=== PATIENT | female | born 1975 | race Caucasian/White ===

== ENCOUNTER 2017-09-06 13:16 | Emergency (ER) | payer SELFPAY ==
[~2017-09-06] VITALS: Ht 167.6 cm; Wt 68.0 kg
[~2017-09-06 13:16] MED LIST: ACET325T9 PO
[2017-09-06 13:30] VITALS: BP 127/75
--- NOTE | 2017-09-06 14:22 | RAD ---
Indication: Fall with left hip pain. Time of exam 1412 hours. Femoral acetabular alignment is normal. The joint space is well-maintained. The femoral head and neck are intact. No fractures are seen. Impression: No acute bony abnormality is detected.
--- NOTE | 2017-09-06 14:22 | RAD ---
Indication: Fall and left knee pain. Time of exam 1411 hours. 3 views of the left knee demonstrate normal alignment. The joint spaces are well-maintained. The articular surfaces are smooth. No fracture, dislocation or effusion is seen. Impression: No acute bony abnormality is detected.
[2017-09-06] MEDS ORDERED: ACET-704 PO (14:54)
--- NOTE | 2017-09-06 14:55 | PHYS DOC ---
Past Medical History Past Medical History: No Pertinent History Past Surgical History: Appendectomy, Cholecystectomy, Hysterectomy, Tonsillectomy Alcohol Use: None Drug Use: Marijuana Adult General Chief Complaint Chief Complaint: KNEE INJURY [facility] HPI Patient is a 41 year old female presents to the emergency department stating that she fell down one step and injured her left knee and left hip. She states that she did this approximately 3 days ago. Patient states that she has increased pain in the knee area increased pain in the hip area with ambulation. Patient states that the knee pain is on the lateral part of the knee and the anterior just above the kneecap. Patient states that she has no numbness or tingling down to the lower extremities. She has not taken anything for pain and discomfort. Patient states that she feels a popping sensation in her hip area. Review of Systems Review of Systems Constitutional: Denies fever or chills [] Eyes: Denies change in visual acuity, redness, or eye pain [] HENT: Denies nasal congestion or sore throat [] Respiratory: Denies cough or shortness of breath [] Cardiovascular: No additional information not addressed in HPI [] GI: Denies abdominal pain, nausea, vomiting, bloody stools or diarrhea [] : Denies dysuria or hematuria [] Musculoskeletal: Denies back pain. Complaint of left hip and knee pain Integument: Denies rash or skin lesions [] Neurologic: Denies headache, focal weakness or sensory changes [] Endocrine: Denies polyuria or polydipsia [] All other systems were reviewed and found to be within normal limits, except as documented in this note. Allergies Allergies Allergies Coded Allergies Type Severity Reaction Last Updated Verified fentanyl Allergy Severe Unknown 01/31/14 No Penicillins Allergy Intermediate 09/06/17 Yes amoxicillin Adverse Reaction Intermediate Hives 06/26/14 No morphine Adverse Reaction Intermediate Nausea and Vomiting 01/31/14 Yes Physical Exam Physical Exam Constitutional: Well developed, well nourished, no acute distress, non-toxic appearance. [] HENT: Normocephalic, atraumatic, bilateral external ears normal, oropharynx moist, no oral exudates, nose normal. [] Eyes: PERRLA, EOMI, conjunctiva normal, no discharge. [] Neck: Normal range of motion, no tenderness, supple, no stridor. [] Cardiovascular:Heart rate regular rhythm Lungs & Thorax: No respiratory distress noted Skin: Warm, dry, no erythema, no rash. [] Extremities: No tenderness, no cyanosis, no clubbing, ROM intact, no edema. Tenderness noted to the left lateral knee, anterior knee area just above the patella. Negative lachmans. Positive vargus stress test Neurologic: Alert and oriented X 3, normal motor function, normal sensory function, no focal deficits noted. [] Psychologic: Affect normal, judgement normal, mood normal. [] Current Patient Data Vital Signs Vital Signs Date Time Temp Pulse Resp B/P (MAP) Pulse Ox O2 Delivery O2 Flow Rate FiO2 09/06/17 13:30 97.8 96 16 98 Room Air 97.8 EKG EKG [] Radiology/Procedures Radiology/Procedures [] Course & Med Decision Making Course & Med Decision Making Pertinent Labs and Imaging studies reviewed. (See chart for details) X-rays were negative for any bony abnormalities with her left hip, left knee. Patient was placed in a knee immobilizer with recommendations for ice packs on 20 minutes off 20 minutes several times a day elevation as much as possible. Patient was provided with Tylenol 3 for severe pain and discomfort as she has difficulty taking nonsteroidal anti-inflammatories. Patient was provided with orthopedic name and number to follow up within the next 5-7 days. Patient was provided with signs and symptoms to return back to the emergency department. All questions and concerns been answered at the patients bedside. Patient will be discharged home in stable condition signs and symptoms to return back to the emergency department has been provided. Patient was also instructed to Tylenol 3 may cause drowsiness do not take any be alert and oriented. She was also instructed that this medication will cause constipation to make sure to eat a high-fiber diet such as for some vegetables and drink plenty of fluids. [] Dragon Disclaimer Dragon Disclaimer This electronic medical record was generated, in whole or in part, using a voice recognition dictation system. Departure Departure Impression: Primary Impression: Left knee pain Disposition: 01 HOME, SELF-CARE Condition: STABLE Referrals: RASHEED BUCKLEY MD (PCP) Patient Instructions: Knee Pain, [id number] Additional Instructions: Activity as tolerated Ice packs on 20 minutes and off 20 minutes several times a day Elevation as much as possible Wear the knee immobilizer whenever you are up ambulating Tylenol #3 will cause drowsiness do not take if you need to be alert and oriented. This medication may cause constipation. Drink plenty of water, high fiber diet (eat a lot of fruits and vegetables) Followup with orthopedic in 5-7 days Return to emergency department as needed for signs and symptoms that become worse. Scripts Acetaminophen With Codeine (TYLENOL WITH CODEINE #3 TABLET) 1 Each Tablet 1 TAB PO PRN Q6HRS Y for PAIN, #15 TAB Prov: CHARMAINE KAUFMAN APRN 09/06/17 CHARMAINE KAUFMAN APRN Sep 06, 2017 14:54
== END 2017-09-06 15:01 | disposition home or self-care (01) ==
LOC: ER 13:16
DX: S89.92XA Unspecified injury of left lower leg, initial encounter (principal); S79.912A Unspecified injury of left hip, initial encounter; F12.10 Cannabis abuse, uncomplicated; Z90.49 Acquired absence of other specified parts of digestive tract; Z90.710 Acquired absence of both cervix and uterus; Z88.0 Allergy status to penicillin; Z88.4 Allergy status to anesthetic agent; Z88.1 Allergy status to other antibiotic agents; Z88.5 Allergy status to narcotic agent; W10.9XXA Fall (on) (from) unspecified stairs and steps, initial encounter; Y93.89 Activity, other specified; Y99.8 Other external cause status; Y92.89 Other specified places as the place of occurrence of the external cause
CPT/HCPCS: 29505; 73502; 73564; 99284-25

== ENCOUNTER 2017-09-28 10:11 | Emergency (ER) | payer SELFPAY | END 2017-09-28 10:54 | disposition home or self-care (01) | LOC: ER 10:11 | DX: J20.9 Acute bronchitis, unspecified (principal); F12.10 Cannabis abuse, uncomplicated; Z88.0 Allergy status to penicillin; Z88.4 Allergy status to anesthetic agent; Z88.5 Allergy status to narcotic agent; Z88.1 Allergy status to other antibiotic agents; Z90.49 Acquired absence of other specified parts of digestive tract; Z90.710 Acquired absence of both cervix and uterus | CPT/HCPCS: 99283 ==

== ENCOUNTER 2017-10-31 20:33 | Emergency (ER) | payer BC ==
[2017-10-31] MEDS ORDERED: HYDROcodone/APAP 5/325MG 1 TAB TABLET PO ×2 (21:15)
[2017-10-31] MEDS: NAPROXEN 500 MG TABLET PO ×2 (21:51)
[2017-10-31] MEDS: diazePAM 5 MG TABLET PO ×2 (21:51)
== END 2017-10-31 22:10 | disposition home or self-care (01) ==
LOC: ER 20:33
DX: M54.5 Low back pain (principal); G89.29 Other chronic pain; Z88.0 Allergy status to penicillin; Z88.5 Allergy status to narcotic agent; Z88.4 Allergy status to anesthetic agent
CPT/HCPCS: 72100; 99284

== ENCOUNTER 2020-05-30 13:21 | Emergency (ER) | payer MEDICAID ==
[~2020-05-30] VITALS: Ht 165.1 cm; Wt 68.1 kg
[~2020-05-30 13:21] MED LIST changes: +ACET-704 PO; +ALBU2.5V8 INH; +AZIT250T6 PO; +DIAZ5TAB PO; +DICL50TA4 PO; +METH4TAB2 PO; +PRED20TA PO
--- NOTE | 2020-05-30 15:13 | RAD ---
ANKLE LEFT 3V, FOOT LEFT 3V History: Reason: pain and swelling, fell down stairs / Spl. Instructions: / History: Technique: 3 views left ankle and 3 views left foot Comparison: None. Findings: Ankle: Symmetric ankle mortise. No fracture. Foot: Acute fifth proximal phalanx base intra-articular fracture nondisplaced. There is adjacent soft tissue swelling. No additional fracture. Normal alignment of the foot. Impression: 1. Acute left fifth proximal phalanx base and articular fracture with adjacent soft tissue swelling. Electronically signed by: Neftali Riggs DO (05/30/2020 3:10 PM) [id number]
[2020-05-30] MEDS ORDERED: HYDROcodone/APAP 5/325MG 1 TAB TABLET PO ONE (15:30)
--- NOTE | 2020-05-30 15:46 | RAD ---
Study: CR HAND RIGHT 3V Indication: Fall. Hand injury. Comparison: None. Findings: No definite fracture seen throughout the hand or wrist or involving the distal radius/ulna. Tiny ossific fragment at the thumb IP joint, not definitively acute. No advanced arthrosis. Osseous mineralization is within normal limits. Impression: No definite fracture seen throughout the right hand. Small foci of mineralization at the thumb IP and little finger DIP joints (see brock images) are favored more likely chronic though recommend correlation for pinpoint tenderness. Electronically signed by: EVIN FONG MD (05/30/2020 3:43 PM) [id number]
--- NOTE | 2020-05-30 16:04 | PHYS DOC ---
Past Medical History Past Medical History: Bronchitis Past Surgical History: Appendectomy, Cholecystectomy, Hysterectomy, Tonsillectomy Smoking Status: Former Smoker Alcohol Use: None Drug Use: None Social History Narrative: DAILY MARIJUANA USE General Adult EDM: Chief Complaint: FOOT INJURY PAIN HPI: HPI: Patient is a 44 year old female who presented to ER today for evaluation of left foot pain, right hand pain. Patient says she was walking last night she tripped over her dog, twisted her left foot and landed on her right hand. Patient denies any head or neck injury, complaint of right hand pain, left foot pain. Patient denies any back pain. Review of Systems: Review of Systems: Constitutional: Denies fever or chills. [] Eyes: Denies change in visual acuity. [] HENT: Denies nasal congestion or sore throat. [] Respiratory: Denies cough or shortness of breath. [] Cardiovascular: Denies chest pain or edema. [] GI: Denies abdominal pain, nausea, vomiting, bloody stools or diarrhea. [] : Denies dysuria. [] Musculoskeletal: Denies any back pain, positive for right hand pain, positive left foot pain. Integument: Denies rash. [] Neurologic: Denies headache, focal weakness or sensory changes. [] Endocrine: Denies polyuria or polydipsia. [] Lymphatic: Denies swollen glands. [] Psychiatric: Denies depression or anxiety. [] Heart Score: Risk Factors: Risk Factors: DM, Current or recent (<one month) smoker, HTN, HLP, family history of CAD, obesity. Risk Scores: Score 0 - 3: 2.5% MACE over next 6 weeks - Discharge Home Score 4 - 6: 20.3% MACE over next 6 weeks - Admit for Clinical Observation Score 7 - 10: 72.7% MACE over next 6 weeks - Early Invasive Strategies Current Medications: Current Medications Medications (Trade) Dose Ordered Sig/Beni Start Time Stop Time Status Last Admin Dose Admin Acetaminophen/ Hydrocodone Bitart (Lortab 5/325) 1 tab 1X ONCE 05/30/20 15:30 05/30/20 15:40 DC 05/30/20 15:46 1 TAB Allergies: Allergies: Allergies Coded Allergies Type Severity Reaction Last Updated Verified fentanyl Allergy Severe Unknown 01/31/14 No Penicillins Allergy Intermediate 09/06/17 Yes amoxicillin Adverse Reaction Intermediate Hives 06/26/14 No morphine Adverse Reaction Intermediate Nausea and Vomiting 01/31/14 Yes Physical Exam: PE: Constitutional: Well developed, well nourished, no acute distress, non-toxic appearance. [] HENT: Normocephalic, atraumatic, bilateral external ears normal, oropharynx moist, no oral exudates, nose normal. [] Eyes: PERRLA, EOMI, conjunctiva normal, no discharge. [] Neck: Normal range of motion, no tenderness, supple, no stridor. [] Cardiovascular:Heart rate regular rhythm, no murmur [] Lungs & Thorax: Bilateral breath sounds clear to auscultation [] Abdomen: Bowel sounds normal, soft, no tenderness, no masses, no pulsatile masses. [] Skin: Warm, dry, no erythema, no rash. [] Back: No tenderness, no CVA tenderness. [] Extremities: LEFT FOOT IS TENDER TO PALPATION AND SWELLING AT THE DISTAL PART OF LEFT FOOT AT THE 5TH AND 4TH TOES. NO OPEN WOUND. RIGHT HAND IS TENDER TO PALPATION AT THE MIDHAND AREA, NO OPEN WOUND, NO SNUFFBOX TENDERNESS TO PALPATION. Neurologic: Alert and oriented X 3, normal motor function, normal sensory function, no focal deficits noted. [] Psychologic: Affect normal, judgement normal, mood normal. [] Current Patient Data: Vital Signs: Vital Signs Date Time Temp Pulse Resp B/P (MAP) Pulse Ox O2 Delivery O2 Flow Rate FiO2 05/30/20 15:46 16 99 05/30/20 13:55 98.0 67 125/80 (95) Room Air 98.0 EKG: EKG: [] Radiology/Procedures: Radiology/Procedures: [][facility] [address] [place], [place] [id number] IMAGING REPORT Signed PATIENT: BLAISE WILSON: [id number] : 1975 LOCATION: ER AGE: 44 SEX: F EXAM STATUS: REG ER ORD. PHYSICIAN: SOHA NEUMANN DO REASON: pain and swelling, fell down stairs PROCEDURE: FOOT LEFT 3V ANKLE LEFT 3V, FOOT LEFT 3V History: Reason: pain and swelling, fell down stairs / Spl. Instructions: / History: Technique: 3 views left ankle and 3 views left foot Comparison: None. Findings: Ankle: Symmetric ankle mortise. No fracture. Foot: Acute fifth proximal phalanx base intra-articular fracture nondisplaced. There is adjacent soft tissue swelling. No additional fracture. Normal alignment of the foot. Impression: 1. Acute left fifth proximal phalanx base and articular fracture with adjacent soft tissue swelling. Electronically signed by: Neftali Riggs DO (05/30/2020 3:10 PM) [id number] DICTATED and SIGNED BY: NEFTALI RIGGS DO DATE: 05/30/20 1510 [facility] [address] [place], [place] [id number] IMAGING REPORT Signed PATIENT: BLAISE WILSON: [id number] : 1975 LOCATION: ER AGE: 44 SEX: F EXAM STATUS: REG ER ORD. PHYSICIAN: SOHA NEUMANN DO REASON: fell, right side hand injury PROCEDURE: HAND RIGHT 3V Study: CR HAND RIGHT 3V Indication: Fall. Hand injury. Comparison: None. Findings: No definite fracture seen throughout the hand or wrist or involving the distal radius/ulna. Tiny ossific fragment at the thumb IP joint, not definitively acute. No advanced arthrosis. Osseous mineralization is within normal limits. Impression: No definite fracture seen throughout the right hand. Small foci of mineralization at the thumb IP and little finger DIP joints (see brock images) are favored more likely chronic though recommend correlation for pinpoint tenderness. Electronically signed by: EVIN FONG MD (05/30/2020 3:43 PM) [id number] DICTATED and SIGNED BY: EVIN FONG MD DATE: 05/30/20 2169 Course & Med Decision Making: Course & Med Decision Making Pertinent Labs and Imaging studies reviewed. (See chart for details) Patient is a 44-year-old female who fell last night, sustained right wrist sp rain, wrist Velcro splint was applied to her right wrist. Patient also have fracture the fifth distal phalanx, a walking boot was applied her left foot. Patient will be discharged home, she will need to follow-up with orthopedic doctor for outpatient evaluation. Dragon Disclaimer: Rudolph Disclaimer: This electronic medical record was generated, in whole or in part, using a voice recognition dictation system. Departure Departure Impression: Primary Impression: Right wrist sprain Additional Impression: Foot fracture, left Disposition: 01 HOME, SELF-CARE Condition: STABLE Referrals: RASHEED BUCKLEY MD (PCP) KAYLAH KRAFT II, MD PLEASE FOLLOW UP WITH THE ORTHOPEDIC DOCTOR FOR OUTPATIENT EVALUATION NEXT WEEK. Patient Instructions: Foot Fracture, Wrist Sprain with Rehab[facility] Scripts Naproxen Sodium (ANAPROX DS) 550 Mg Tablet 1 TAB PO BID PRN for PAIN for 15 Days, #30 TAB 0 Refills Prov: SOHA NEUMANN DO 05/30/20 Justicifation of Admission Dx: Justifications for Admission: Justification of Admission Dx: N/A SOHA NEUMANN DO May 30, 2020 16:04
[2020-05-30] MEDS ORDERED: NAPR-682 PO (16:13)
[2020-05-30 17:03] VITALS: BP 146/84
== END 2020-05-30 17:03 | disposition home or self-care (01) ==
LOC: ER 13:21
DX: S92.902A Unspecified fracture of left foot, initial encounter for closed fracture (principal); S92.515A Nondisplaced fracture of proximal phalanx of left lesser toe(s), initial encounter for closed fracture; S63.501A Unspecified sprain of right wrist, initial encounter; Z87.891 Personal history of nicotine dependence; Z88.0 Allergy status to penicillin; Z88.1 Allergy status to other antibiotic agents; Z88.4 Allergy status to anesthetic agent; Z88.5 Allergy status to narcotic agent; W01.0XXA Fall on same level from slipping, tripping and stumbling without subsequent striking against object, initial encounter; Y93.01 Activity, walking, marching and hiking; Y92.89 Other specified places as the place of occurrence of the external cause; Y99.8 Other external cause status
CPT/HCPCS: 29125; 73130; 73610; 73630; 99283; 99284